=== PATIENT | female | born 1945 | race Caucasian/White ===

== ENCOUNTER 2017-02-27 11:14 | Inpatient (IN) ==
--- NOTE | 2017-02-26 21:03 | Discharge Summary ---
<Gerda Mcbride - Last Filed: 02/26/17 20:58> Date of Encounter: 02/26/17 - Discharge Diagnosis (1) Arthritis of knee, left Priority: Primary Status: Acute (2) COPD (chronic obstructive pulmonary disease) Priority: Secondary Status: Chronic Qualifiers: COPD type: unspecified COPD Qualified Code(s): J44.9 - Chronic obstructive pulmonary disease, unspecified (3) History of lymphoma Priority: Secondary Status: Chronic (4) Type 2 diabetes mellitus Priority: Secondary Status: Chronic Qualifiers: Diabetes mellitus complication status: with unspecified complications Diabetes mellitus penitentiary insulin use: unspecified adjunct faculty for medical terminology insulin use status Qualified Code(s): E11.8 - Type 2 diabetes mellitus with unspecified complications (5) MGUS (monoclonal gammopathy of unknown significance) Priority: Secondary Status: Chronic (6) Chronic renal insufficiency, stage III (moderate) Priority: Secondary Status: Chronic - Discharge Medications Home Medications: Albuterol Neb [Proventil Neb] 2.5 mg IH Q4HR PRN 10/05/16 [History] Albuterol Sulfate [Ventolin Hfa] 2 puff IH Q4H PRN 10/05/16 [History] Amitriptyline HCl 100 mg PO HS 10/05/16 [History] Ascorbate Calcium [Vitamin C] 500 mg PO DAILY 10/05/16 [History] Bumetanide 3 mg PO QAM 10/05/16 [History] Bumetanide [Bumex] 1 mg PO QPM 10/05/16 [History] Cholecalciferol (D-3) [Vitamin D] 5,000 unit PO DAILY 10/05/16 [History] Clopidogrel [Plavix] 75 mg PO DAILY 10/05/16 [History] Darbepoetin Bunny in Polysorbat [Aranesp] 200 mcg IJ Q2W 10/05/16 [History] Fluticasone Propionate Nasal [Flonase] 1 spr NS DAILY PRN 10/05/16 [History] Fluticasone/Salmeterol [Advair 250-50 Diskus] 1 each IH BID 10/05/16 [History] Guaifenesin [Mucinex] 600 mg PO Q12H 10/05/16 [History] Insulin Glargine,Hum.rec.anlog [Lantus Solostar] 25 unit SQ HS 10/05/16 [History ] Insulin LISPRO [HumaLOG] 6 units SQ TIDWM 10/05/16 [History] Isosorbide MONOnitrate (24 HR) [Imdur] 30 mg PO DAILY 10/05/16 [History] LORazepam [Ativan] 0.5 mg PO TID PRN 10/05/16 [History] Losartan Potassium [Cozaar] 100 mg PO DAILY 10/05/16 [History] Metoprolol [Lopressor] 50 mg PO BID 10/05/16 [History] Montelukast [Singulair] 10 mg PO HS 10/05/16 [History] Nitroglycerin [Nitrostat] 0.4 mg SL Q5M PRN 10/05/16 [History] Omeprazole [PriLOSEC] 40 mg PO BID 10/05/16 [History] Quetiapine Fumarate [SEROquel] 100 mg PO HS 10/05/16 [History] Sennosides [Senna] 8.6 mg PO DAILY 10/05/16 [History] Umeclidinium [place] [Incruse Ellipta] 1 puff IH DAILY 10/05/16 [History] Venlafaxine HCl [Effexor Xr] 225 mg PO DAILY 10/05/16 [History] HYDROcodone/Acet 10/325 mg [[place] 10-325 mg] 1 tab PO Q8H PRN 12/22/16 [History] Folic Acid 1 mg PO DAILY #30 tablet 02/13/17 [Rx] Aspirin Enteric Coated [Aspirin EC] 325 mg PO DAILY #21 tablet. 02/26/17 [Rx] Atorvastatin Calcium [Lipitor] 20 mg PO Q48H 02/27/17 [History] Calcitriol 0.5 mcg PO BID 02/27/17 [History] Cyanocobalamin (Vitamin B-12) [Vitamin B-12] 50 mcg PO DAILY 03/01/17 [History] Docusate [Colace] 100 mg PO DAILY 03/01/17 [History] Allergies/Adverse Reactions: Allergies codeine Adverse Reaction (Verified 02/27/17 12:20) Nausea NSAIDS (Non-Steroidal Anti-Inflamma Adverse Reaction (Verified 02/27/17 12:20) Nausea tramadol [From Ultram] Adverse Reaction (Verified 02/27/17 12:20) Nausea Primary care physician: Brock Alfaro MD - Patient Status Disposition: Transfer Inpatient Rehab Fac Condition: Good - Discharge Instructions Follow Up With: Brock Alfaro MD [Primary Care Provider] - 04/17/17 1:15 pm Navin Monteiro MD [Partnered Physician] - 03/28/17 9:45 am Gerda Mcbride PAC [Physician Assistant Office Manager] - 03/08/17 1:30 pm Gerda Maher CNP [Partnered Physician] - 03/23/17 1:00 pm Additional Instructions: Discharge Instructions: Total Knee Replacement Please call [facility] ([phone]), your Primary Care Physician, or report to the Emergency Room if you have any of the following symptoms: Nausea, vomiting, fever greater that 101.5, swelling, chest pain, shortness of breath, increased pain/redness/drainage/odor for your incision site, numbness/ tingling, or any other concerning symptoms. ACTIVITY:Weight-bearing as tolerated. You may progress off support (crutches or walker) as tolerated. MEDICATIONS: Upon discharge resume your home medications. Take all the medications as prescribed. Take a stool softener if taking narcotic pain medications. Stool softeners are only effective if you drink enough fluids. Drink 6-8 glass of water or fluids a day, unless this is not allowed for another health problem. Despite using stool softeners, if you haven't had a bowel movement in 3 days, please switch to a gentle laxative. Gentle laxatives are sold over the counter. You should have a bowel movement within 24 hours, if not call the office. You will be discharged from the hospital with a prescription for pain medication. You are encouraged to decrease the use of narcotic pain medication as tolerated. Should you require a refill, please call the office. [facility] prescribes narcotic pain medication for only 4-6 weeks after surgery. If you require pain medication beyond this time period, you may be referred to your Primary Care Physician or to the Pain Clinic for further evaluation. Plan ahead for refills on pain medication as many narcotics either need to be picked up at the office or mailed. It is best to call 48-72 hours in advance of needing a prescription refill so you don't run out of medication. To help control the post-operative pain, you may take NSAIDs (Aleve,Advil, Motrin, Ibuprofen, Naprosyn) or Tylenol as prescribed on the bottle in addition to the pain medication. ANTICOAGULATION (blood thinners): Continue your Aspirin, Lovenox or Coumadin as prescribed to help prevent a blood clot in the leg or in the lungs. As long as your incision remains dry and you tolerate the NSAIDs (Aleve, Advil, Motrin, ibuprofen, naprosyn), it is OK to use the NSAIDS while you are taking your anticoagulation medication. Should your incision start to drain, stop the NSAID and contact our office. Common symptoms of blood clot in the legs include: localized pain, swelling, calf tenderness, redness or discoloration of the skin. Blood clot in the lung symptoms include: shortness of breath, rapid pulse, sweating, and chest pain that worsens with deep breathing, coughing up blood, lightheadedness, feelings of anxiety. If you experience any of these symptoms notify your physician immediately, go to the emergency room, or if having trouble breathing, call 911. WOUND CARE: Leave the dressing on for 7 to 10days. You may change the dressing if it becomes saturated greater than 50%. Do not get the dressing wet at anytime. Wash your hands with antibacterial soap, rinse and dry prior to any wound care. If you have susan the visiting nurse or rehab facility can remove the stapes 10-14 days after surgery and place steri-strips across the wound. Leave the steri-strips in place until they fall off on their won. You may let water from the shower run on top of the steri-strips. If you do not have a visiting nurse or rehab facility, you will need to return to the office at 10-14 days for the susan to be removed. If you have itching or redness around the dressing call the office. FOLLOW-UP: Please follow up with your surgeon in the orthopedic clinic in 4 weeks from the day of surgery. If you have susan that need to be removed, you will need to come back to the office in 10-14 days from the day of surgery. - Hospital Course Hospital course: Ms. Gillette is a 72 year old female - Time Spent with Patient Total time spent providing and/or coordinating discharge services: <Navin Monteiro - Last Filed: 03/02/17 09:38> Date of Encounter: 03/02/17 Time of Encounter: 09:38 - Discharge Diagnosis (1) Obesity (BMI 30.0-34.9) Priority: Secondary Status: Chronic (2) Arthritis of knee, left Priority: Primary Status: Acute (3) COPD (chronic obstructive pulmonary disease) Priority: Secondary Status: Chronic Qualifiers: COPD type: unspecified COPD Qualified Code(s): J44.9 - Chronic obstructive pulmonary disease, unspecified (4) History of lymphoma Priority: Secondary Status: Chronic (5) Malignant lymphoma, lymphoplasmacytic Priority: Secondary Status: Chronic (6) Type 2 diabetes mellitus Priority: Secondary Status: Chronic Qualifiers: Diabetes mellitus complication status: with unspecified complications Diabetes mellitus penitentiary insulin use: unspecified adjunct faculty for medical terminology insulin use status Qualified Code(s): E11.8 - Type 2 diabetes mellitus with unspecified complications (7) MGUS (monoclonal gammopathy of unknown significance) Priority: Secondary Status: Chronic (8) Chronic renal insufficiency, stage III (moderate) Priority: Secondary Status: Chronic (9) Anemia Priority: Secondary Status: Chronic Qualifiers: Anemia type: other cause Other causes of anemia: chronic disease, kidney Qualified Code(s): N18.9 - Chronic kidney disease, unspecified; D63.1 - Anemia in chronic kidney disease (10) Acute blood loss anemia Priority: Primary Status: Acute Primary care physician: Brock Alfaro MD - Patient Status Functional capacity at discharge: uses cane/walker Overall status at discharge: patient is progressing back to baseline - Hospital Course Hospital course: Ms. Gillette is a 72 year old female The patient had an uneventful postoperative course. They received antibiotics and physical therapy and were discharged in stable condition. There will follow -up in the office in 2 weeks. Plavix DVT prophylaxis - Time Spent with Patient Total time spent providing and/or coordinating discharge services:
--- NOTE | 2017-02-27 11:47 | Anesthesia Evaluation PreOp ---
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 History: Denies Any Significant HX Other Medical History: Renal (stage 3 CKD), Diabetes Type II, GERD, Other (H/O lymphoma immunosupressive therapy, anxiety/depression) Anesthesia History: No Prior Anesthetic Complications, Past Anesthesia Alcohol Use: none Drug use: none Medications and Allergies Albuterol Neb [Proventil Neb] 2.5 mg IH Q4HR PRN 10/05/16 [History] Albuterol Sulfate [Ventolin Hfa] 2 puff IH Q4H PRN 10/05/16 [History] Amitriptyline HCl 100 mg PO HS 10/05/16 [History] Ascorbate Calcium [Vitamin C] 500 mg PO DAILY 10/05/16 [History] Bumetanide 3 mg PO QAM 10/05/16 [History] Bumetanide [Bumex] 1 mg PO QPM 10/05/16 [History] Cholecalciferol (D-3) [Vitamin D] 5,000 unit PO DAILY 10/05/16 [History] Clopidogrel [Plavix] 75 mg PO DAILY 10/05/16 [History] Cyanocobalamin (Vitamin B-12) [Vitamin B-12] 1,000 mcg SL DAILY 10/05/16 [ History] Darbepoetin Bunny in Polysorbat [Aranesp] 200 mcg IJ Q2W 10/05/16 [History] Fluticasone Propionate Nasal [Flonase] 1 spr NS DAILY PRN 10/05/16 [History] Fluticasone/Salmeterol [Advair 250-50 Diskus] 1 each IH BID 10/05/16 [History] Guaifenesin [Mucinex] 600 mg PO Q12H 10/05/16 [History] Insulin Glargine,Hum.rec.anlog [Lantus Solostar] 25 unit SQ HS 10/05/16 [History ] Insulin LISPRO [HumaLOG] 6 units SQ TIDWM 10/05/16 [History] Isosorbide MONOnitrate (24 HR) [Imdur] 30 mg PO DAILY 10/05/16 [History] LORazepam [Ativan] 0.5 mg PO TID PRN 10/05/16 [History] Losartan Potassium [Cozaar] 100 mg PO DAILY 10/05/16 [History] Metoprolol [Lopressor] 50 mg PO BID 10/05/16 [History] Montelukast [Singulair] 10 mg PO HS 10/05/16 [History] Nitroglycerin [Nitrostat] 0.4 mg SL Q5M PRN 10/05/16 [History] Omeprazole [PriLOSEC] 40 mg PO DAILY 10/05/16 [History] Paricalcitol [Zemplar] 1 mcg PO DAILY 10/05/16 [History] Quetiapine Fumarate [SEROquel] 100 mg PO HS 10/05/16 [History] Sennosides [Senna] 8.6 mg PO DAILY 10/05/16 [History] Umeclidinium [place] [Incruse Ellipta] 1 puff IH DAILY 10/05/16 [History] Venlafaxine HCl [Effexor Xr] 225 mg PO DAILY 10/05/16 [History] HYDROcodone/Acet 10/325 mg [[place] 10-325 mg] 1 tab PO Q8H PRN 12/22/16 [History] Simvastatin [Zocor] 20 mg PO HS 12/22/16 [History] Folic Acid 1 mg PO DAILY #30 tablet 02/13/17 [Rx] Aspirin Enteric Coated [Aspirin EC] 325 mg PO DAILY #21 tablet. 02/26/17 [Rx] HYDROcodone/Acet 5/325 mg [[place] 5-325 mg] 1 - 2 tab PO DAILY #14 tab 02/26/17 [ Rx] Allergies codeine Adverse Reaction (Verified 10/05/16 09:26) Nausea NSAIDS (Non-Steroidal Anti-Inflamma Adverse Reaction (Verified 10/05/16 09:26) Nausea tramadol [From Ultram] Adverse Reaction (Verified 10/05/16 09:26) Nausea - Meds/Allergy Pre-op Review Medications Reviewed: Yes Allergies Reviewed: Yes Beta Blockers on Current Med List: Yes If Beta Blockers taken, Date/Time (Last Dose taken): 02/27/2017 at 0800 Anesthesia Results - Labs Laboratory Tests 0402/21/17 02/21/17 16:00 12:05 12:05 WBC 9.5 Hgb 10.2 L Hct 32.2 L Plt Count 419 H PT 11.0 INR 1.0 APTT 29.0 Sodium 134 L Potassium 4.4 BUN 24 H Creatinine 1.20 H - Imaging EKG: report reviewed (02/08/2017 SR, moderate voltage criteria for LVH, NSST abnormality) Additional studies: 02/01/2017 Echo LVEF 60% very small pericardial effusion along the inferior and inferolateral segments of LV no tamponade 01/18/2017 Stress perfusion imaging was negative for ischemia or infarct EF 64% 08/29/2012 Cath Impression: Minimal atherosclerotic coronary artery disease. The left ventricular ejection fraction was 65-70%. The overall left ventricular systolic function was hyperkinetic. Anesthesia Exam Blood glucose: 116 Height: 5'2'' Weight: 189 lbs NPO (# of Hours): 8 Pain Scale: 8 Pain Scale Used: Numeric (1 - 10) - HEENT Pupil (Motor): EOMI Mallampati: III Teeth: Edentulous Denture Type: Upper: Complete, Lower: Complete Oral Opening: Greater than 3 - ATTORNEY [employer]ER LOC: Oriented ATTORNEY [employer]ER Motor: Normal RUE, Normal LUE, Normal RLE, Normal LLE, Normal Face [employer]ORNEY [employer]ER Sensory: Normal: LUE, RLE, LLE, Face, Deficit: RUE - Cardiac Rhythm: Regular Murmur: None - Pulmonary Breath Sounds: bilateral Clear Respiratory Effort: Symmetrical Anesthesia Assess/Plan ASA Score: 4 Modified [place] Scale for Level of Consciousness: Cooperative, oriented, and tranquil Anesthetic Plan: General, Regional, Precautions (Patient and family understand that she is at increased risk for perioperative complications including myocardial infarct, arrhythmias, CVA, post op vent support/ICU stay, and . Patient and family wish to proceed.) Monitoring Plan: Standard Monitors Recovery Plan: PACU
[2017-02-27] MEDS ORDERED: Tetracaine/PF 20 MG/2 ML AMPUL SPINA ONE (12:02)
--- NOTE | 2017-02-27 12:05 | History & Physical Report ---
Date of Encounter: 02/27/17 Time of Encounter: 12:04 24 Hour HP Update - Instructions Instructions: If the History and Physical is less than 30 days old and was completed prior to A.M. admission and or procedure and has NOT been updated on calendar day of procedure please complete this update prior to performing procedure. - Update Patient reports changes in Medical Condition: No Changes in examination, assessment, or condition: No Changes in Medication: No Preop tests/diagnostics Reviewed: Yes Surgery Remains Indicated: Yes Consent for Planned Operative Procedure(s) Verified: Yes - Pre-Operative Checklist Preoperative Checklist Indicated: No Prophylactic Antibiotic Ordered: Yes Is VTE Prophylaxis Indicated?: Yes
[2017-02-27] MEDS ORDERED: CeFAZolin Pre 2,000 MG/100 ML 2,000 MG/100 ML BAG IVPB ONE (12:09)
[2017-02-27] MEDS ORDERED: Albuterol 2.5 MG/3 ML NEBULIZER IH ONE ×2 (12:09→13:02)
[2017-02-27] MEDS ORDERED: Lidocaine -MPF 1% 2 ML VIAL ID ONE (12:09)
[2017-02-27] MEDS ORDERED: 0.9 % Sodium Chloride 1,000 ML IVC SCH (12:15)
[2017-02-27] MEDS ORDERED: *HR* Promethazine 25 MG/ML VIAL IVP PRN (13:02)
[2017-02-27] MEDS ORDERED: *HR* Labetalol 100 MG/20 ML MDV IVP PRN (13:02)
[2017-02-27] MEDS ORDERED: Lidocaine -MPF 2% 2 ML VIAL ONE (13:13)
[2017-02-27] MEDS ORDERED: Dexamethasone 4 MG/ML VIAL ONE (13:13)
[2017-02-27] MEDS ORDERED: Lidocaine -MPF 4% 5 ML AMPUL ONE (13:13)
[2017-02-27] MEDS ORDERED: *HR* Rocuronium Bromide 50 MG/5 ML VIAL ONE (13:13)
[2017-02-27] MEDS ORDERED: Ondansetron 4 MG/2 ML VIAL ONE (13:13)
[2017-02-27] MEDS ORDERED: *HR* FentaNYL (PF) 100 MCG/2 ML VIAL ONE (13:13)
[2017-02-27] MEDS ORDERED: *HR* Succinylcholine 200 MG/10 ML VIAL IVP ONE (13:13)
[2017-02-27] MEDS ORDERED: *HR* Propofol 200 MG/20 ML VIAL IVP ONE (13:14)
[2017-02-27] MEDS ORDERED: *HR* Midazolam HCl 2 MG/2 ML VIAL ONE (13:14)
--- NOTE | 2017-02-27 14:01 | Anesthesia Procedures ---
Date of Encounter: 02/27/17 Time of Encounter: 14:01 Procedures: Anesthesia - Nerve Block Procedure Date: 02/27/17 Time: 13:59 Allergies/Adv Reactions: Allergies codeine Adverse Reaction (Verified 02/27/17 12:20) Nausea NSAIDS (Non-Steroidal Anti-Inflamma Adverse Reaction (Verified 02/27/17 12:20) Nausea tramadol [From Ultram] Adverse Reaction (Verified 02/27/17 12:20) Nausea Pre-op Diagnosis: oa left knee Surgical Procedure: left total knee Checklist: Correct Patient Identifier, Correct procedure, History checked Correct side: Left Blood Thinner: No Monitor Applied: EKG, BP, Pulse Oximetry Supplemental Oxygen via Nasal Cannula (L/min): 2 Sedation: Versed (mg): 2 Sedation: Fentanyl (mcg): 100 Indication: Post Op Analgesia Pre-op Neuro Deficits: No Block Type: Femoral (.5% bup), Other (ipack, 20cc 0.25% bup) Catheter placed: No Sterile Technique: Yes Ultrasound used: Yes Anatomy identified: Yes Visual spread of Local: Yes Neuro Stimulation: Yes Nerve Stimulator Range: 0.2 - 0.4 mA Blood on Needle Aspiration: No Smooth Injection of Local: Yes Pain with Injection of Local: No Prep: Chlorhexadine Needle: 22 x 50 mm Stimuplex, 21 x 100 mm Stimuplex Local: 0.25% Bupivicaine w/Clonidine 20 mcg/cc, Other Volume (cc): 40 Number of Attempts: 1 Complications: None/effective block
--- NOTE | 2017-02-27 14:55 | Orthopedic Operative Note ---
Date of procedure: 02/27/17 Pre-op diagnosis: Left knee arthritis Procedure: Procedure: left Total knee replacement Estimated blood loss: 500 cc Hardware: Arthrex Femur: 5 Tibia: 5 PS insert: 11 Patella:37 Exam Under anesthesia: Full flexion full extension no instability Procedural Notes: Grade 4 changes medial compartment patellofemoral joint. Operative procedure: The patient was brought to the operating room and placed on the operating room table. After general anesthesia was administered the operative knee was examined. Findings were noted in the exam under anesthesia. The operative extremity was prepped and draped in sterile surgical fashion. The patient received IV antibiotics prior to skin incision. A standard midline incision was made centered over the patella. The incision was made through the skin and subcutaneous tissue. A medial parapatellar tendon approach was performed. Care was taken to preserve tissue along the medial aspect of the patella. And to protect the patella tendon. The deep MCL was released off the medial tibia. The infra patella fat pad was excised. Knee was brought into flexion. Patient noted to have grade 4 changes medial compartment and patellofemoral joint. The entry hole was made for the intramedullary femoral guide. The guide was seated in 6 degrees of valgus. Anterior cut was made followed by the distal cut. The ACL the PCL the medial and the lateral menisci were excised. The tibia was subluxed forward. The entry hole was made for the intramedullary tibial guide. Guide was seated to resect 2 mm off the more abnormal side. The knee was brought into flexion the distal femur was sized to a 5. The femoral guide was seated, the anterior cut was made followed by the posterior condylar cut, followed by the chamfer cuts. The finishing guide was seated the box cut was made and the lug holes were drilled. The tibia was sized to a 5, the tibial tray was seated and prepared with the large drill followed by the fin cutter. Trial reduction revealed full extension no varus valgus instability with the appropriate 11 PS Dorothy. The patella was everted and cut was made at the level of the insertion of the quadriceps and patella tendon. The patella was sized to a 37 the guide was seated and the lug holes are drilled. Trial reduction revealed excellent patella tracking. All trial components were removed all bony surfaces were irrigated. The tibia was cemented first followed by the femur. The 11 PS Dorothy was seated and the knee was brought into full extension. The patella was cemented and held in place with the patellar holding clamp. After the cement had hardened, the knee sat for 2 minutes with a Betadine saline solution. The knee was then irrigated out with 2 L of pulse irrigation. The extensor mechanism was closed with #2 FiberWire suture and #2 PDS suture. The subcutaneous tissue was then irrigated and closed deep with #1 PDS suture superficially with 0 PDS suture and skin was closed with skin susan. The patient was then placed in a sterile dressing and a postoperative brace extubated and transferred to recovery room in stable condition. Surgeon: Navin Monteiro Director Medical Safety: Gerda Mcbride Condition: stable Disposition: PACU
[2017-02-27] MEDS: *HR* HYDROmorphone (PF) 1 MG/ML SYRINGE IVP PRN ×5 (15:30→20:04)
[2017-02-27] MEDS ORDERED: *HR* HYDROmorphone (PF) 1 MG/ML SYRINGE ONE ×2 (15:30→15:41)
[2017-02-27 15:58] LABS: Hematocrit 30.8 % (35.3-44.9); Hemoglobin 9.3 g/dL (11.5-15.4)
--- NOTE | 2017-02-27 16:09 | Anesthesia Procedures ---
Date of Encounter: 02/27/17 Time of Encounter: 16:00 Procedures: Anesthesia - Nerve Block Procedure Date: 02/27/17 Time: 16:00 Allergies/Adv Reactions: codeine, nsaids, tramadol Pre-op Diagnosis: Left knee pain/arthritis Surgical Procedure: Left total knee arthroplasty Checklist: Correct Patient Identifier, Correct procedure, History checked Correct side: Left Blood Thinner: No Monitor Applied: EKG, BP, Pulse Oximetry Supplemental Oxygen via Nasal Cannula (L/min): 2 Indication: Post Op Analgesia Pre-op Neuro Deficits: No Block Type: Femoral Catheter placed: No Sterile Technique: Yes Ultrasound used: Yes Anatomy identified: Yes Visual spread of Local: Yes Neuro Stimulation: No Smooth Injection of Local: Yes Pain with Injection of Local: No Prep: Chlorhexadine Needle: 22 x 50 mm Stimuplex Local: 0.25% Bupivicaine w/Clonidine 20 mcg/cc Volume (cc): 40 Number of Attempts: 1 Complications: None/effective block Vitals: Vital Signs Temperature 98.7 F 02/27/17 12:39 Pulse Rate 89 02/27/17 12:39 Respiratory Rate 18 02/27/17 12:39 Blood Pressure 141/69 02/27/17 12:39 O2 Sat by Pulse Oximetry 97 02/27/17 12:39 Temperature 97.8 F 02/27/17 16:06 Pulse Rate 91 02/27/17 16:06 Respiratory Rate 22 02/27/17 16:06 Blood Pressure 149/69 02/27/17 16:06 O2 Sat by Pulse Oximetry 100 02/27/17 16:06 Comments: Rescue block performed in the PACU. Pain intolerable post surgery and previously failed block. Pt. tolerated well.
[2017-02-27] MEDS ORDERED: Ketamine *HR* 500 MG/10 ML MDV ONE (16:10)
[2017-02-27] MEDS ORDERED: Acetaminophen IV 1,000 MG/100 ML INFUS..BTL ONE (16:16)
[2017-02-27] MEDS ORDERED: Acetaminophen IV 1,000 MG/100 ML INFUS..BTL IVPB ONE (16:19)
--- NOTE | 2017-02-27 16:32 | Anesthesia Evaluation Post Op ---
Date of Encounter: 02/27/17 Time of Encounter: 16:32 - Vital Signs Vital Signs: Last Vital Signs Temp 98.0 F 02/27/17 16:26 Pulse 90 02/27/17 16:26 Resp 20 02/27/17 16:26 BP 164/74 02/27/17 16:26 Pulse Ox 100 02/27/17 16:26 - Lungs Lungs: Clear Ascult./Percussion - Airway Airway: Non-obstructed - Cardiovascular Regular Rate - Mental Status Mental Status: Alert & Oriented, Answers Appropriately - Pain Pain Scale: 4 - Nausea Vomiting Nausea Vomiting: Not Present - Hydration Hydration: Ice chips - Discharge PostOp Status: Transfer Patient to floor
[2017-02-27] MEDS ORDERED: Ringers Solution, Lactated 1,000 ML IVC SCH (17:00)
[2017-02-27] MEDS ORDERED: Temazepam 15 MG CAPSULE PO PRN (17:00)
[2017-02-27] MEDS ORDERED: *HR* OxyCODONE Immed Rel 5 MG TABLET PO PRN (17:00)
[2017-02-27] MEDS ORDERED: Acetaminophen 325 MG TABLET PO PRN (17:00)
[2017-02-27] MEDS ORDERED: Dextrose Gel 15 GM PO PRN ×2 (17:00)
[2017-02-27] MEDS ORDERED: D5% in Water 1,000 ML IVC PRN (17:00)
[2017-02-27] MEDS ORDERED: Naloxone 0.4 MG/ML INJ IVP PRN (17:00)
[2017-02-27] MEDS ORDERED: Ondansetron 4 MG/2 ML VIAL IVP PRN (17:00)
[2017-02-27] MEDS ORDERED: Sennosides 8.6 MG TABLET PO PRN (17:00)
[2017-02-27] MEDS ORDERED: MOM Conc 10 ML UD.LIQ PO PRN (17:00)
[2017-02-27] MEDS ORDERED: *HR* Dextrose 50 % in Water (Syg) 50 ML SYRINGE IVP PRN (17:00)
[2017-02-27] MEDS: ceFAZolin 2,000 MG in D5% in Water 100 ML IVPB SCH (17:39)
[2017-02-27] MEDS: Insulin LISPRO 300 UNITS/3 ML VIAL SQ SCH (17:40)
[2017-02-27] MEDS: *HR* Enoxaparin 30 MG/0.3 ML SYRINGE SQ SCH (17:42)
[2017-02-27] MEDS ORDERED: *HR* Enoxaparin 30 MG/0.3 ML SYRINGE SQ SCH (18:00)
[2017-02-27] MEDS: *HR* OxyCODONE Immed Rel 5 MG TABLET PO PRN (21:23)
[2017-02-27] MEDS ORDERED: Fluticasone Propionate Nasal 50 MCG/SPRAY BOTTLE NS PRN (22:19)
[2017-02-27] MEDS ORDERED: Nitroglycerin 0.4 MG TAB.SUBL SL PRN (22:19)
[2017-02-27] MEDS ORDERED: *HR* LORazepam 0.5 MG TABLET PO PRN (22:42)
[2017-02-27] MEDS: Albuterol 2.5 MG/3 ML NEBULIZER IH SCH (23:38)
[2017-02-28] MEDS: ceFAZolin 2,000 MG in D5% in Water 100 ML IVPB SCH (00:26)
[2017-02-28] MEDS: Albuterol 2.5 MG/3 ML NEBULIZER IH SCH ×6 (04:50→23:12)
[2017-02-28 05:08] LABS: Hematocrit 24.6 % (35.3-44.9)
[2017-02-28 05:29] LABS: Hemoglobin 7.7 g/dL (11.5-15.4)
[2017-02-28 05:35] LABS: Calcium 9.3 mg/dL (8.6-10.8); Potassium 4.6 mEq/L (3.5-4.5)
[2017-02-28] MEDS: *HR* Enoxaparin 30 MG/0.3 ML SYRINGE SQ SCH (05:37)
[2017-02-28] MEDS ORDERED: Furosemide 20 MG/2 ML VIAL IVP ONE (06:28)
[2017-02-28] MEDS ORDERED: 0.9 % Sodium Chloride 250 ML IVC SCH (06:30)
[2017-02-28] MEDS ORDERED: D5% in Water 1,000 ML IVC PRN (06:34)
--- NOTE | 2017-02-28 06:43 | Orthopedics Progress Note ---
Date of Encounter: 02/28/17 Time of Encounter: 06:42 - Assessment and Plan (1) Obesity (BMI 30.0-34.9) Current Visit: Yes Status: Chronic (2) Arthritis of knee, left Current Visit: Yes Status: Acute (3) COPD (chronic obstructive pulmonary disease) Current Visit: Yes Status: Chronic Qualifiers: COPD type: unspecified COPD Qualified Code(s): J44.9 - Chronic obstructive pulmonary disease, unspecified (4) History of lymphoma Current Visit: Yes Status: Chronic (5) Malignant lymphoma, lymphoplasmacytic Current Visit: No Status: Chronic (6) Type 2 diabetes mellitus Current Visit: No Status: Chronic Qualifiers: Diabetes mellitus complication status: with unspecified complications Diabetes mellitus intermediate project manager insulin use: unspecified intermediate project manager insulin use status Qualified Code(s): E11.8 - Type 2 diabetes mellitus with unspecified complications (7) MGUS (monoclonal gammopathy of unknown significance) Current Visit: No Status: Chronic (8) Chronic renal insufficiency, stage III (moderate) Current Visit: No Status: Chronic (9) Anemia Current Visit: No Status: Chronic Qualifiers: Anemia type: other cause Other causes of anemia: chronic disease, kidney Qualified Code(s): N18.9 - Chronic kidney disease, unspecified; D63.1 - Anemia in chronic kidney disease (10) Acute blood loss anemia Current Visit: Yes Status: Acute Subjective Interval history: Patient was seen this morning doing well without complaints. Afebrile vital signs stable. Operative extremity: Neurovascularly intact Dressing clean dry and intact Calves nontender Assessment and plan: Continue with postoperative care Hematocrit 24 2 units packed red blood cells Objective Vital signs: Vital Signs Temp Pulse Resp BP Pulse Ox 02/28/17 06:32 97.8 F 89 16 132/65 98 02/28/17 04:50 18 98 02/28/17 03:50 97.8 F 99 18 120/55 98 02/28/17 00:00 97.3 F L 95 19 126/58 99 02/27/17 23:38 18 97 02/27/17 19:55 98.2 F 97 18 139/67 99 02/27/17 16:55 97.4 F L 90 18 149/62 99 02/27/17 16:26 98.0 F 90 20 164/74 100 02/27/17 16:16 99.4 F 92 22 172/83 100 02/27/17 16:06 97.8 F 91 22 149/69 100 02/27/17 15:56 92 22 150/70 100 02/27/17 15:46 92 26 141/61 100 02/27/17 15:36 88 26 139/76 100 02/27/17 15:26 95 28 138/63 100 02/27/17 15:16 97.3 F L 103 28 137/63 96 02/27/17 13:56 96 16 150/66 98 02/27/17 13:46 96 16 142/63 99 02/27/17 13:26 98 16 157/58 99 02/27/17 12:39 98.7 F 89 18 141/69 97 Intake and Output 02/27/17 02/27/17 02/28/17 15:59 23:59 07:59 Intake Total 500 / 500 100 / 100 100 / 100 Output Total 100 / 100 1150 / 1150 Balance 400 / 400 -1050 / -1050 100 / 100 Intake: IV Fluids 500 / 500 100 / 100 100 / 100 0.9 % Sodium Chloride 1, 500 / 500 000 ML @ 25 mls/hr IVC . Q24H JOSSY Rx#:[id number] Ancef 2,000 MG In 100 / 100 100 / 100 Dextrose 5% 100 ML @ 200 mls/hr IVPB Q8H JOSSY Rx#: [id number] Output: Urine 1150 / 1150 Estimated Blood Loss 100 / 100 Other: Weight 85.729 kg Blood Glucose* 184 206 - Labs CBC & BMP: 02/28/17 03:55 02/28/17 03:55 Labs: Abnormal lab results Hgb 7.7 g/dL (11.5-15.4) L D 02/28/17 03:55 Hct 24.6 % (35.3-44.9) L 02/28/17 03:55 Sodium 135 mEq/L (136-145) L 02/28/17 03:55 Potassium 4.6 mEq/L (3.5-4.5) H 02/28/17 03:55 BUN 25 mg/dL (7-20) H 02/28/17 03:55 Creatinine 1.18 mg/dL (0.57-1.11) H 02/28/17 03:55 Est GFR ( Amer) 54 (> 60) L 02/28/17 03:55 Est GFR (Non-Af Amer) 45 (> 60) L 02/28/17 03:55 Glucose 166 mg/dL (70-99) H 02/28/17 03:55 POC Glucose 184 (58-89) H 02/27/17 15:21 - VTE Documentation of Mechanical Device: Venous foot pump, device Consult Discharge Plan - Plan Referrals: Brock Alfaro MD [Primary Care Provider] -
[2017-02-28] MEDS: Bumetanide 1 MG TABLET PO SCH (08:49)
[2017-02-28] MEDS: *HR* OxyCODONE Immed Rel 5 MG TABLET PO PRN ×3 (08:49→22:08)
[2017-02-28] MEDS: Insulin LISPRO 300 UNITS/3 ML VIAL SQ SCH ×3 (08:49→16:40)
[2017-02-28] MEDS: Venlafaxine XR (24 HR) 75 MG CAP.ER.24H PO SCH (08:50)
[2017-02-28] MEDS: Isosorbide MONOnitrate (24 HR) 30 MG TAB.ER.24H PO SCH (08:50)
[2017-02-28] MEDS: Cholecalciferol (D-3) 1,000 UNIT TABLET PO SCH (08:51)
[2017-02-28] MEDS: Cyanocobalamin (B-12) 1,000 MCG TABLET PO SCH (08:51)
[2017-02-28] MEDS: Folic Acid 1 MG TABLET PO SCH (08:51)
[2017-02-28] MEDS: Sennosides 8.6 MG TABLET PO SCH (08:51)
[2017-02-28] MEDS: Ascorbic Acid 500 MG TABLET PO SCH (08:51)
[2017-02-28] MEDS ORDERED: (Incruse Ellipta] 1 PUFF) IH SCH (09:00)
[2017-02-28] MEDS: Budesonide/Formoterol 80/4.5 MDI IH SCH ×2 (09:17→20:01)
[2017-02-28] MEDS ORDERED: 0.9 % Sodium Chloride 250 ML ONE (12:06)
[2017-02-28] MEDS: *HR* HYDROmorphone (PF) 1 MG/ML SYRINGE IVP PRN ×2 (12:10→16:41)
[2017-02-28] MEDS ORDERED: Bumetanide 1 MG TABLET PO SCH (18:00)
[2017-02-28] MEDS ORDERED: Insulin LISPRO 300 UNITS/3 ML VIAL SQ SCH (21:00)
[2017-03-01] MEDS: *HR* OxyCODONE Immed Rel 5 MG TABLET PO PRN ×3 (05:00→13:07)
[2017-03-01] MEDS: Albuterol 2.5 MG/3 ML NEBULIZER IH SCH ×3 (05:21→11:42)
[2017-03-01 06:25] LABS: Hematocrit 26.1 % (35.3-44.9); Hemoglobin 8.4 g/dL (11.5-15.4)
[2017-03-01 06:38] LABS: BUN/Creatinine Ratio 29 (6-26); Blood Urea Nitrogen 31 mg/dL (7-20); Calcium 9.6 mg/dL (8.6-10.8); Carbon Dioxide 28 mEq/L (19-29); Chloride 102 mEq/L (98-109); Glucose 112 mg/dL (70-99); Osmolality,Calculated 289 (280-300); Sodium 136 mEq/L (136-145); eGFR For African Americans > 60 (> 60); eGFR For Non-African Americans 50 (> 60)
[2017-03-01] MEDS: Insulin LISPRO 300 UNITS/3 ML VIAL SQ SCH ×2 (07:39→11:53)
[2017-03-01] MEDS: Isosorbide MONOnitrate (24 HR) 30 MG TAB.ER.24H PO SCH (07:49)
[2017-03-01] MEDS: Bumetanide 1 MG TABLET PO SCH (07:49)
[2017-03-01] MEDS: *HR* HYDROmorphone (PF) 1 MG/ML SYRINGE IVP PRN ×2 (07:49→10:23)
[2017-03-01] MEDS: Cyanocobalamin (B-12) 1,000 MCG TABLET PO SCH (07:49)
[2017-03-01] MEDS: Sennosides 8.6 MG TABLET PO SCH (07:50)
[2017-03-01] MEDS: Cholecalciferol (D-3) 1,000 UNIT TABLET PO SCH (07:50)
[2017-03-01] MEDS: Folic Acid 1 MG TABLET PO SCH (07:50)
[2017-03-01] MEDS: Ascorbic Acid 500 MG TABLET PO SCH (07:50)
[2017-03-01] MEDS: Venlafaxine XR (24 HR) 75 MG CAP.ER.24H PO SCH (07:50)
--- NOTE | 2017-03-01 08:13 | Orthopedics Progress Note ---
Date of Encounter: 03/01/17 Time of Encounter: 08:13 - Assessment and Plan (1) Obesity (BMI 30.0-34.9) Current Visit: Yes Status: Chronic (2) Arthritis of knee, left Current Visit: Yes Status: Acute (3) COPD (chronic obstructive pulmonary disease) Current Visit: Yes Status: Chronic Qualifiers: COPD type: unspecified COPD Qualified Code(s): J44.9 - Chronic obstructive pulmonary disease, unspecified (4) History of lymphoma Current Visit: Yes Status: Chronic (5) Malignant lymphoma, lymphoplasmacytic Current Visit: No Status: Chronic (6) Type 2 diabetes mellitus Current Visit: No Status: Chronic Qualifiers: Diabetes mellitus complication status: with unspecified complications Diabetes mellitus buttermaker insulin use: unspecified buttermaker insulin use status Qualified Code(s): E11.8 - Type 2 diabetes mellitus with unspecified complications (7) MGUS (monoclonal gammopathy of unknown significance) Current Visit: No Status: Chronic (8) Chronic renal insufficiency, stage III (moderate) Current Visit: No Status: Chronic (9) Anemia Current Visit: No Status: Chronic Qualifiers: Anemia type: other cause Other causes of anemia: chronic disease, kidney Qualified Code(s): N18.9 - Chronic kidney disease, unspecified; D63.1 - Anemia in chronic kidney disease (10) Acute blood loss anemia Current Visit: Yes Status: Acute Subjective Interval history: Patient was seen this morning doing well without complaints. Afebrile vital signs stable. Operative extremity: Neurovascularly intact Dressing clean dry and intact Calves nontender Assessment and plan: Continue with postoperative care Hemoglobin 8.4 Objective Vital signs: Vital Signs Temp Pulse Resp BP Pulse Ox 03/01/17 07:40 99.1 F 102 16 155/67 93 03/01/17 04:50 99.4 F 97 16 132/69 98 03/01/17 01:12 98.9 F 94 16 121/58 96 02/28/17 23:12 18 96 02/28/17 20:01 16 97 02/28/17 19:54 99.5 F 106 16 131/64 97 02/28/17 16:20 99.1 F 98 16 143/60 99 02/28/17 15:36 98.4 F 100 18 136/68 97 02/28/17 13:50 98.6 F 94 18 132/67 100 02/28/17 12:49 98.4 F 92 20 131/63 100 02/28/17 12:38 97.1 F L 95 16 145/68 93 02/28/17 12:17 98.5 F 95 16 152/67 93 02/28/17 11:33 16 100 02/28/17 10:03 98.0 F 92 16 134/63 100 02/28/17 09:28 97.5 F L 93 18 139/68 99 02/28/17 09:17 16 100 02/28/17 09:13 97.1 F L 102 20 142/60 100 Intake and Output 02/28/17 03/01/17 03/01/17 23:59 07:59 15:59 Output Total 300 / 300 Balance -300 / -300 Output: Urine 300 / 300 Other: Blood Glucose* 137 134 - Labs CBC & BMP: 03/01/17 05:24 03/01/17 05:24 Labs: Abnormal lab results Hgb 8.4 g/dL (11.5-15.4) L 03/01/17 05:24 Hct 26.1 % (35.3-44.9) L 03/01/17 05:24 BUN 31 mg/dL (7-20) H 03/01/17 05:24 Est GFR (Non-Af Amer) 50 (> 60) L 03/01/17 05:24 BUN/Creatinine Ratio 29 (6-26) H 03/01/17 05:24 Glucose 112 mg/dL (70-99) H 03/01/17 05:24 POC Glucose 110 (58-89) H 02/28/17 16:23 - VTE Documentation of Mechanical Device: Venous foot pump, device Consult Discharge Plan - Plan Referrals: Brock Alfaro MD [Primary Care Provider] - 04/17/17 1:15 pm Navin Monteiro MD [Partnered Physician] - 03/28/17 9:45 am Gerda Mcbride, PAC [Physician Custodial Operations Manager] - 03/08/17 1:30 pm Gerda Maher, TRANSACTIONAL PARALEGAL [Partnered Physician] - 03/23/17 1:00 pm
[2017-03-01] MEDS ORDERED: INCRUSE ELLIPTA 62.5 MCG IH SCH (09:00)
[2017-03-01 11:01] VITALS: BP 152/68
== END 2017-03-01 13:30 | DRG 470 ==
LOC: SAMDAY 11:14 → 3NENU 17:02
PROVIDERS: ADMIT Orthopaedic Surgery; ATTEND Orthopaedic Surgery

== ENCOUNTER 2020-11-19 13:00 | Observation (INO) ==
[2020-11-19] MEDS ORDERED: CeFAZolin Syr 2,000MG/20 ML 2,000 MG/20 ML SYRINGE IVPB ONE (13:19)
[2020-11-19] MEDS ORDERED: Acetaminophen IV 1,000 MG/100 ML BAG IVPB ONE (13:20)
[2020-11-19] MEDS ORDERED: Famotidine 20 MG/2 ML VIAL IVP ONE (13:20)
[2020-11-19] MEDS ORDERED: Ringers Solution, Lactated 1,000 ML IVC SCH ×2 (13:30→17:08)
[2020-11-19] MEDS ORDERED: Ropivacaine/PF 0.5% 30 ML VIAL ONE (13:41)
[2020-11-19] MEDS ORDERED: ROPIVACAINE/PF/NS 0.25% 1 EACH SYRINGE INTRAART ONE (13:41)
[2020-11-19] MEDS ORDERED: 0.9 % Sodium Chloride 500 ML IVC SCH (13:45)
[2020-11-19] MEDS ORDERED: *HR* Propofol 200 MG/20 ML VIAL IVP ONE (13:48)
[2020-11-19] MEDS ORDERED: *HR* FentaNYL (PF) 100 MCG/2 ML VIAL ONE (13:59)
[2020-11-19] MEDS ORDERED: Lidocaine -MPF 2% 2 ML VIAL ONE (14:02)
[2020-11-19] MEDS ORDERED: *HR* Rocuronium Bromide 50 MG/5 ML VIAL ONE (14:02)
[2020-11-19] MEDS ORDERED: Dexamethasone 4 MG/ML VIAL ONE (14:02)
[2020-11-19] MEDS ORDERED: Ondansetron 4 MG/2 ML VIAL ONE (14:02)
[2020-11-19] MEDS ORDERED: EPHEDrine 50 MG/ML VIAL ONE (14:06)
[2020-11-19] MEDS ORDERED: Ethanol\\Acetic Acid\\Na Ace\\Ben 1,000 ML IRRIG.SOLN IR ONE (14:38)
[2020-11-19] MEDS ORDERED: Vancomycin 1,000 MG VIAL ONE (14:38)
[2020-11-19] MEDS ORDERED: *HR* OxyCODONE Immed Rel 5 MG TABLET PO PRN (14:41)
[2020-11-19] MEDS ORDERED: Morphine Sulfate 2 MG/ML SYRINGE IVP PRN (14:41)
[2020-11-19] MEDS ORDERED: Ondansetron 4 MG/2 ML VIAL IVP PRN ×2 (14:41→17:08)
[2020-11-19] MEDS ORDERED: Povidone-Iodine 45 ML, Sodium Chloride IRRigation 1,000 ML IR ONE (15:05)
[2020-11-19] MEDS ORDERED: Sugammadex Sodium 200 MG/2 ML VIAL IV ONE (15:54)
[2020-11-19 17:08] LABS: Hematocrit 27.6 % (35.3-44.9); Hemoglobin 8.3 g/dL (11.5-15.4)
[2020-11-19] MEDS ORDERED: MOM Conc 10 ML UD.LIQ PO PRN (17:08)
[2020-11-19] MEDS ORDERED: Naloxone 0.4 MG/ML INJ IVP PRN (17:08)
[2020-11-19] MEDS ORDERED: D5% in Water 1,000 ML IVC PRN (17:08)
[2020-11-19] MEDS ORDERED: Sennosides 8.6 MG TABLET PO PRN (17:08)
[2020-11-19] MEDS ORDERED: *HR* OxyCODONE/APAP 5/325 TABLET PO PRN (17:08)
[2020-11-19] MEDS ORDERED: *HR* Dextrose 50 % in Water (Vial) 50 ML VIAL IVP PRN (17:08)
[2020-11-19] MEDS ORDERED: Dextrose Gel 15 GM/37.5 ML TUBE PO PRN ×2 (17:08)
[2020-11-19] MEDS: Insulin LISPRO 300 UNITS/3 ML VIAL SUBQ SCH ×2 (17:44→23:18)
[2020-11-19] MEDS: CeFAZolin 2 GM/120 ML BAG IVPB SCH (23:19)
[2020-11-20 01:15] LABS: Hematocrit 24.2 % (35.3-44.9); Hemoglobin 7.3 g/dL (11.5-15.4)
[2020-11-20 02:20] LABS: Calcium 9.5 mg/dL (8.6-10.3); Potassium 5.4 mEq/L (3.5-5.1)
[2020-11-20] MEDS: *HR* OxyCODONE Immed Rel 5 MG TABLET PO PRN ×3 (05:16→12:25)
[2020-11-20] MEDS: CeFAZolin 2 GM/120 ML BAG IVPB SCH (05:30)
[2020-11-20] MEDS ORDERED: Fluticasone Propionate Nasal 50 MCG/SPRAY BOTTLE NS PRN (08:08)
[2020-11-20] MEDS: Insulin LISPRO 300 UNITS/3 ML VIAL SUBQ SCH ×4 (08:15→20:40)
[2020-11-20] MEDS: Cholecalciferol (D-3) 1,000 UNIT (25MCG) TABLET PO SCH (09:43)
[2020-11-20] MEDS: Magnesium Oxide 400 MG TABLET PO SCH (09:43)
[2020-11-20] MEDS: Ascorbic Acid 500 MG TABLET PO SCH (09:44)
[2020-11-20] MEDS: Cyanocobalamin (B-12) 1,000 MCG TABLET PO SCH (09:45)
[2020-11-20] MEDS: Isosorbide MONOnitrate (24 HR) 30 MG TAB.ER.24H PO SCH (09:45)
[2020-11-20] MEDS: Folic Acid 1 MG TABLET PO SCH (09:45)
[2020-11-20] MEDS: calcitrioL 0.25 MCG CAPSULE PO SCH (09:45)
[2020-11-20] MEDS: Clotrimazole/Betameth Dip CRM 45 APPL/45 GM TUBE TP SCH ×2 (09:46→20:40)
[2020-11-20] MEDS: amLODIPine 5 MG TABLET PO SCH (09:46)
[2020-11-20] MEDS: Bumetanide 1 MG TABLET PO SCH ×2 (09:49→16:28)
[2020-11-20] MEDS: Albuterol 2.5 MG/3 ML NEBULIZER IH SCH ×2 (10:03→16:05)
[2020-11-20] MEDS: *HR* Enoxaparin 30 MG/0.3 ML SYRINGE SQ SCH (12:21)
[2020-11-20] MEDS ORDERED: 0.9 % Sodium Chloride 250 ML ONE (13:32)
[2020-11-20] MEDS: *HR* HYDROcodone/Acet 10/325 mg TABLET PO PRN ×2 (16:28→20:40)
[2020-11-20] MEDS ORDERED: QUEtiapine Fumarate 25 MG TABLET PO SCH (21:00)
[2020-11-20] MEDS ORDERED: Mirtazapine 15 MG TABLET PO SCH (21:00)
[2020-11-21] MEDS: *HR* HYDROcodone/Acet 10/325 mg TABLET PO PRN ×3 (03:20→14:38)
[2020-11-21 03:58] LABS: Hematocrit 28.5 % (35.3-44.9)
[2020-11-21 03:59] LABS: Hemoglobin 9.1 g/dL (11.5-15.4)
[2020-11-21] MEDS: Albuterol 2.5 MG/3 ML NEBULIZER IH SCH ×2 (04:15→08:11)
[2020-11-21 04:19] LABS: Calcium 10.2 mg/dL (8.6-10.3)
[2020-11-21 07:10] VITALS: BP 159/71
[2020-11-21] MEDS: Insulin LISPRO 300 UNITS/3 ML VIAL SUBQ SCH ×2 (10:16→12:56)
[2020-11-21] MEDS: amLODIPine 5 MG TABLET PO SCH (10:19)
[2020-11-21] MEDS: Ascorbic Acid 500 MG TABLET PO SCH (10:19)
[2020-11-21] MEDS: Bumetanide 1 MG TABLET PO SCH (10:19)
[2020-11-21] MEDS: calcitrioL 0.25 MCG CAPSULE PO SCH (10:20)
[2020-11-21] MEDS: Cyanocobalamin (B-12) 1,000 MCG TABLET PO SCH (10:20)
[2020-11-21] MEDS: Isosorbide MONOnitrate (24 HR) 30 MG TAB.ER.24H PO SCH (10:20)
[2020-11-21] MEDS: Cholecalciferol (D-3) 1,000 UNIT (25MCG) TABLET PO SCH (10:20)
[2020-11-21] MEDS: Magnesium Oxide 400 MG TABLET PO SCH (10:20)
[2020-11-21] MEDS: Folic Acid 1 MG TABLET PO SCH (10:21)
[2020-11-21] MEDS: Clotrimazole/Betameth Dip CRM 45 APPL/45 GM TUBE TP SCH (10:38)
[2020-11-21] MEDS: *HR* Enoxaparin 30 MG/0.3 ML SYRINGE SQ SCH (12:12)
== END 2020-11-21 14:47 ==
LOC: 3NENU 13:00 → SAMDAY 13:00 → 3NENU 18:05
PROVIDERS: ADMIT Orthopaedic Surgery; ATTEND Orthopaedic Surgery

== ENCOUNTER 2020-12-11 16:39 | Inpatient (IN) ==
[2020-12-11] MEDS ORDERED: Isovue-370 500 ML BOTTLE IVP ONE (17:41)
[2020-12-11 17:43] LABS: Basophils % 0.3 %; Eosinophils # 0.3 K/mcL (0.0-0.6); Hematocrit 29.6 % (35.3-44.9); Hemoglobin 8.9 g/dL (11.5-15.4); Immature Granulocytes % 0.8 % (0-4); Lymphocytes # 1.8 K/mcL (0.6-4.6); Lymphocytes % 15.8 %; Mean Corpuscular HGB Conc 30.1 g/dL (31.6-35.5); Mean Corpuscular Hemoglobin 30.6 pg (28.0-33.3); Mean Corpuscular Volume 101.7 fL (83.0-100.0); Mean Platelet Volume 8.4 fL (9.4-12.4); Monocytes # 1.4 K/mcL (0.0-1.3); Monocytes % 12.3 %; Neutrophils # 7.8 K/mcL (1.6-8.9); Platelet Count 445 K/mcL (140-400); Red Blood Count 2.91 M/mcL (3.82-4.97); Red Cell Distribution Width 14.1 % (11.5-14.5); Segmented Neutrophils % 67.8 %; White Blood Count 11.5 K/mcL (4.3-11.1)
[2020-12-11] MEDS ORDERED: *HR* FentaNYL (PF) 100 MCG/2 ML VIAL IVP ONE (18:00)
[2020-12-11] MEDS ORDERED: Metoclopramide 10 MG/2 ML VIAL IVP ONE (18:00)
[2020-12-11] MEDS ORDERED: 0.9 % Sodium Chloride 1,000 ML IVC ONE (18:00)
[2020-12-11 18:43] LABS: Calcium 9.4 mg/dL (8.6-10.3); Potassium 4.8 mEq/L (3.5-5.1)
[2020-12-11 19:11] LABS: Albumin 3.4 g/dL (3.5-5.7); Albumin/Globulin Ratio 1.1 (1.1-2.2); Bilirubin,Direct 0.1 mg/dL (0.0-0.2); Bilirubin,Indirect 0.3 mg/dL (0.0-1.0); Bilirubin,Total 0.4 mg/dL (0.3-1.0); Globulin 3.2 g/dL (2.4-3.5); Total Protein 6.6 g/dL (6.4-8.9)
[2020-12-11 19:12] LABS: Calcium 9.5 mg/dL (8.6-10.3); Potassium 4.9 mEq/L (3.5-5.1)
[2020-12-11] MEDS ORDERED: Chloraseptic Spray 177 ML BOTTLE MM PRN (23:01)
[2020-12-11] MEDS ORDERED: Naloxone 0.4 MG/ML INJ IVP PRN (23:08)
[2020-12-11] MEDS ORDERED: Acetaminophen IV 1,000 MG/100 ML BAG IVPB ONE (23:11)
[2020-12-11] MEDS ORDERED: Dextrose Gel 15 GM/37.5 ML TUBE PO PRN ×2 (23:22)
[2020-12-11] MEDS ORDERED: *HR* Dextrose 50 % in Water (Vial) 50 ML VIAL IVP PRN (23:22)
[2020-12-11] MEDS ORDERED: D5% in Water 1,000 ML IVC PRN (23:22)
[2020-12-11] MEDS ORDERED: *HR* Metoprolol 5 MG/5 ML VIAL IVP ONE (23:40)
[2020-12-12] MEDS ORDERED: Metoclopramide 10 MG/2 ML VIAL IVP PRN
[2020-12-12 02:12] LABS: Hematocrit 29.4 % (35.3-44.9); Hemoglobin 8.9 g/dL (11.5-15.4); Mean Corpuscular HGB Conc 30.3 g/dL (31.6-35.5); Mean Corpuscular Hemoglobin 30.8 pg (28.0-33.3); Mean Corpuscular Volume 101.7 fL (83.0-100.0); Mean Platelet Volume 9.4 fL (9.4-12.4); Platelet Count 370 K/mcL (140-400); Red Blood Count 2.89 M/mcL (3.82-4.97)
[2020-12-12 02:33] LABS: Calcium 9.5 mg/dL (8.6-10.3); Chol/HDL Ratio 3.4 (0-4.9); Magnesium 2.2 mg/dL (1.6-2.6); Potassium 4.2 mEq/L (3.5-5.1)
[2020-12-12] MEDS: Insulin LISPRO 300 UNITS/3 ML VIAL SUBQ SCH ×4 (05:45→16:23)
[2020-12-12 08:08] LABS: Hematocrit 26.8 % (35.3-44.9); Hemoglobin 8.2 g/dL (11.5-15.4)
[2020-12-12] MEDS ORDERED: Famotidine 20 MG/2 ML VIAL IVP SCH (09:00)
[2020-12-12] MEDS: *HR* OxyCODONE/APAP 5/325 TABLET PO PRN ×2 (09:17→21:26)
[2020-12-12 09:30] LABS: Estimated Average Glucose 108 mg/dl; Hemoglobin A1C 5.4 %
[2020-12-12 12:37] LABS: Hematocrit 28.5 % (35.3-44.9); Hemoglobin 8.7 g/dL (11.5-15.4)
[2020-12-12 14:06] LABS: Bilirubin,Urine Negative (Negative); Blood,Urine Negative (Negative); Clarity,Urine Clear (Clear); Color,Urine Light-Yellow (Yellow); Glucose,Urine (UA) Normal (Normal); Hyaline Casts,Urine Few per lpf (None Seen); Ketones,Urine Negative (Negative); Leukocyte Esterase,Urine Negative (Negative); Mucus,Urine Few per lpf (None-Few); Nitrite,Urine Negative (Negative); Protein,Urine 200 mg/dL (Neg-Trace); RBC,Urine 0-3 per hpf (0-3); Specific Gravity,Urine 1.018 (1.010-1.025); Squamous Epithelial Cell,Urine Few per hpf (None-Few); Urobilinogen,Urine Normal (Normal)
[2020-12-12 18:08] LABS: Hematocrit 28.1 % (35.3-44.9); Hemoglobin 8.7 g/dL (11.5-15.4)
[2020-12-12] MEDS: *HR* Heparin 5,000 UNIT/ML VIAL SQ SCH (21:26)
[2020-12-12 21:35] LABS: Hematocrit 28.3 % (35.3-44.9); Hemoglobin 8.9 g/dL (11.5-15.4)
[2020-12-13] MEDS: Insulin LISPRO 300 UNITS/3 ML VIAL SUBQ SCH ×4 (02:42→16:22)
[2020-12-13 03:27] LABS: Hematocrit 26.2 % (35.3-44.9); Mean Corpuscular HGB Conc 30.5 g/dL (31.6-35.5); Mean Corpuscular Hemoglobin 31.6 pg (28.0-33.3); Mean Corpuscular Volume 103.6 fL (83.0-100.0); Mean Platelet Volume 8.5 fL (9.4-12.4); Platelet Count 353 K/mcL (140-400); Red Blood Count 2.53 M/mcL (3.82-4.97); Red Cell Distribution Width 13.9 % (11.5-14.5); White Blood Count 9.1 K/mcL (4.3-11.1)
[2020-12-13 03:50] LABS: Calcium 9.4 mg/dL (8.6-10.3); Potassium 3.8 mEq/L (3.5-5.1)
[2020-12-13] MEDS: *HR* Heparin 5,000 UNIT/ML VIAL SQ SCH ×3 (05:47→22:34)
[2020-12-13] MEDS ORDERED: Famotidine 20 MG/2 ML VIAL IVP SCH (09:00)
[2020-12-13] MEDS: *HR* OxyCODONE/APAP 5/325 TABLET PO PRN ×2 (10:58→23:00)
[2020-12-13] MEDS: calcitrioL 0.25 MCG CAPSULE PO SCH (11:10)
[2020-12-13] MEDS: Isosorbide MONOnitrate (24 HR) 30 MG TAB.ER.24H PO SCH (11:11)
[2020-12-13] MEDS: amLODIPine 5 MG TABLET PO SCH (11:12)
[2020-12-13] MEDS: Budesonide/Formoterol 160/4.5 1 PUFF INH IH SCH ×2 (11:38→21:52)
[2020-12-13] MEDS: Bumetanide 1 MG TABLET PO SCH (20:33)
[2020-12-13] MEDS ORDERED: QUEtiapine Fumarate 25 MG TABLET PO SCH (21:00)
[2020-12-13] MEDS ORDERED: Insulin LISPRO 300 UNITS/3 ML VIAL SUBQ SCH (21:00)
[2020-12-13] MEDS ORDERED: Mirtazapine 15 MG TABLET PO SCH (21:00)
[2020-12-14] MEDS ORDERED: *HR* HYDROcodone/Acet 10/325 mg TABLET PO ONE (03:33)
[2020-12-14] MEDS: *HR* Heparin 5,000 UNIT/ML VIAL SQ SCH (05:32)
[2020-12-14] MEDS: calcitrioL 0.25 MCG CAPSULE PO SCH (07:31)
[2020-12-14] MEDS: amLODIPine 5 MG TABLET PO SCH (07:31)
[2020-12-14] MEDS: Isosorbide MONOnitrate (24 HR) 30 MG TAB.ER.24H PO SCH (07:32)
[2020-12-14] MEDS: Bumetanide 1 MG TABLET PO SCH (07:32)
[2020-12-14] MEDS: Insulin LISPRO 300 UNITS/3 ML VIAL SUBQ SCH (07:33)
[2020-12-14] MEDS: Budesonide/Formoterol 160/4.5 1 PUFF INH IH SCH (07:39)
[2020-12-14 08:17] VITALS: BP 165/81
== END 2020-12-14 11:25 | disposition home health service (06) | DRG 389 ==
LOC: 3ANU 16:39 → EMEROOARM 16:39 → SUATTDRO 22:02 → 3ANU 22:20
PROVIDERS: ADMIT Internal Medicine; ATTEND Internal Medicine

== ENCOUNTER 2021-05-05 13:24 | Observation (INO) ==
[2021-05-05] MEDS ORDERED: Furosemide 40 MG/4 ML VIAL IVP ONE ×2 (14:53→21:00)
[2021-05-05 15:13] LABS: Basophils % 0.1 %; Eosinophils # 0.2 K/mcL (0.0-0.6); Eosinophils % 1.9 %; Hematocrit 32.9 % (35.3-44.9); Hemoglobin 10.1 g/dL (11.5-15.4); Immature Granulocytes % 0.7 % (0-4); Lymphocytes # 1.9 K/mcL (0.6-4.6); Lymphocytes % 21.2 %; Mean Corpuscular HGB Conc 30.7 g/dL (31.6-35.5); Mean Corpuscular Hemoglobin 32.1 pg (28.0-33.3); Mean Corpuscular Volume 104.4 fL (83.0-100.0); Mean Platelet Volume 8.4 fL (9.4-12.4); Monocytes # 1.1 K/mcL (0.0-1.3); Monocytes % 12.2 %; Neutrophils # 5.6 K/mcL (1.6-8.9); Platelet Count 245 K/mcL (140-400); Red Blood Count 3.15 M/mcL (3.82-4.97); Red Cell Distribution Width 14.2 % (11.5-14.5); Segmented Neutrophils % 63.9 %; White Blood Count 8.8 K/mcL (4.3-11.1)
[2021-05-05 16:05] LABS: Alanine Aminotransferase 14 Units/L (7-52); Albumin 3.2 g/dL (3.5-5.7); Albumin/Globulin Ratio 1.2 (1.1-2.2); Alkaline Phosphatase 125 Units/L (34-104); Aspartate Amino Transferase 13 Units/L (13-39); BUN/Creatinine Ratio 20 (6-26); Bilirubin,Direct 0.1 mg/dL (0.0-0.2); Bilirubin,Indirect 0.2 mg/dL (0.0-1.0); Bilirubin,Total 0.3 mg/dL (0.3-1.0); Blood Urea Nitrogen 35 mg/dL (8-23); Calcium 9.7 mg/dL (8.6-10.3); Carbon Dioxide 23 mEq/L (23-29); Chloride 103 mEq/L (98-107); Globulin 2.7 g/dL (2.4-3.5); Glucose 117 mg/dL (70-105); Lipase 27 Units/L (11-82); Osmolality,Calculated 291 (280-300); Potassium 4.3 mEq/L (3.5-5.1); Sodium 136 mEq/L (136-145); Total Protein 5.9 g/dL (6.4-8.9); Troponin I < 0.03 ng/mL (< 0.04); eGFR For African Americans 35 (> 60); eGFR For Non-African Americans 28 (> 60)
[2021-05-05] MEDS ORDERED: Naloxone 0.4 MG/ML INJ IVP PRN (17:32)
[2021-05-05] MEDS ORDERED: Melatonin 3 MG TABLET PO PRN (17:32)
[2021-05-05] MEDS ORDERED: Ondansetron 4 MG/2 ML VIAL IVP PRN (17:32)
[2021-05-05] MEDS ORDERED: Albuterol 2.5 MG/3 ML NEBULIZER IH PRN (17:36)
[2021-05-05] MEDS ORDERED: *HR* Dextrose 50 % in Water (Vial) 50 ML VIAL IVP PRN (17:42)
[2021-05-05] MEDS ORDERED: Dextrose Gel 15 GM/37.5 ML TUBE PO PRN ×2 (17:42)
[2021-05-05] MEDS ORDERED: D5% in Water 1,000 ML IVC PRN (17:42)
[2021-05-05] MEDS: *HR* Heparin 5,000 UNIT/ML VIAL SQ SCH (18:42)
[2021-05-05] MEDS: Budesonide/Formoterol 160/4.5 1 PUFF INH IH SCH (19:53)
[2021-05-05] MEDS: Mirtazapine 15 MG TABLET PO SCH (20:02)
[2021-05-05] MEDS: QUEtiapine Fumarate 25 MG TABLET PO SCH (20:03)
[2021-05-06] MEDS: *HR* HYDROcodone/Acet 10/325 mg TABLET PO PRN ×3 (00:01→16:34)
[2021-05-06 02:40] LABS: Calcium 9.3 mg/dL (8.6-10.3); Magnesium 1.8 mg/dL (1.6-2.6); Potassium 4.3 mEq/L (3.5-5.1)
[2021-05-06] MEDS: *HR* Heparin 5,000 UNIT/ML VIAL SQ SCH ×2 (05:52→16:35)
[2021-05-06] MEDS ORDERED: Tiotropium 10 INH DOSE IH ONE (07:52)
[2021-05-06] MEDS: Tiotropium 10 INH DOSE IH SCH (07:55)
[2021-05-06] MEDS: Budesonide/Formoterol 160/4.5 1 PUFF INH IH SCH ×2 (07:55→20:07)
[2021-05-06] MEDS: Sennosides 8.6 MG TABLET PO SCH (08:09)
[2021-05-06] MEDS: amLODIPine 5 MG TABLET PO SCH (08:09)
[2021-05-06] MEDS: Isosorbide MONOnitrate (24 HR) 30 MG TAB.ER.24H PO SCH (08:09)
[2021-05-06] MEDS: Furosemide 40 MG/4 ML VIAL IVP SCH ×2 (08:09→16:35)
[2021-05-06] MEDS ORDERED: Albuterol 2.5 MG/3 ML NEBULIZER IH PRN (12:53)
[2021-05-06] MEDS: Mirtazapine 15 MG TABLET PO SCH (21:50)
[2021-05-06] MEDS: QUEtiapine Fumarate 25 MG TABLET PO SCH (21:51)
[2021-05-07] MEDS: *HR* HYDROcodone/Acet 10/325 mg TABLET PO PRN ×3 (00:58→18:50)
[2021-05-07] MEDS: *HR* Heparin 5,000 UNIT/ML VIAL SQ SCH ×2 (04:55→16:38)
[2021-05-07 05:29] LABS: Calcium 9.6 mg/dL (8.6-10.3); Potassium 4.2 mEq/L (3.5-5.1)
[2021-05-07] MEDS: Tiotropium 10 INH DOSE IH SCH (07:14)
[2021-05-07] MEDS: Budesonide/Formoterol 160/4.5 1 PUFF INH IH SCH ×2 (07:14→20:00)
[2021-05-07] MEDS: Sennosides 8.6 MG TABLET PO SCH (09:21)
[2021-05-07] MEDS: Furosemide 40 MG/4 ML VIAL IVP SCH ×2 (09:22→09:27)
[2021-05-07] MEDS: amLODIPine 5 MG TABLET PO SCH (09:22)
[2021-05-07] MEDS: Isosorbide MONOnitrate (24 HR) 30 MG TAB.ER.24H PO SCH (09:22)
[2021-05-07] MEDS: Furosemide 40 MG TABLET PO SCH ×2 (12:43→16:38)
[2021-05-07] MEDS ORDERED: Bumetanide 1 MG TABLET PO SCH (21:00)
[2021-05-07] MEDS: Mirtazapine 15 MG TABLET PO SCH (21:25)
[2021-05-07] MEDS: QUEtiapine Fumarate 25 MG TABLET PO SCH (21:26)
[2021-05-08] MEDS: *HR* HYDROcodone/Acet 10/325 mg TABLET PO PRN ×2 (02:59→13:16)
[2021-05-08 04:01] LABS: Calcium 9.6 mg/dL (8.6-10.3); Potassium 4.5 mEq/L (3.5-5.1)
[2021-05-08] MEDS: *HR* Heparin 5,000 UNIT/ML VIAL SQ SCH (05:45)
[2021-05-08] MEDS: Sennosides 8.6 MG TABLET PO SCH (07:32)
[2021-05-08] MEDS: Furosemide 40 MG TABLET PO SCH (07:32)
[2021-05-08] MEDS: Isosorbide MONOnitrate (24 HR) 30 MG TAB.ER.24H PO SCH (07:33)
[2021-05-08] MEDS: Tiotropium 10 INH DOSE IH SCH (10:08)
[2021-05-08] MEDS: Budesonide/Formoterol 160/4.5 1 PUFF INH IH SCH (10:08)
[2021-05-08 11:51] VITALS: BP 151/68
== END 2021-05-08 13:46 | disposition home or self-care (01) ==
LOC: EMEROOARM 13:24 → 2ANU 13:24 → SUATTDRO 17:15 → 2ANU 18:05
PROVIDERS: ADMIT Internal Medicine; ATTEND Internal Medicine

== ENCOUNTER 2021-10-27 09:47 | Inpatient (IN) ==
[2021-10-27] MEDS ORDERED: Potassium Chloride Elixir 20 MEQ/15 ML UDC PO ONE (11:18)
[2021-10-27 13:03] LABS: Troponin I 0.04 ng/mL (< 0.04)
[2021-10-27] MEDS ORDERED: *HR* HYDROcodone/Acet 5/325 mg TABLET PO PRN (13:39)
[2021-10-27] MEDS ORDERED: Ondansetron 4 MG/2 ML VIAL IVP PRN (13:39)
[2021-10-27] MEDS ORDERED: Acetaminophen 325 MG TABLET PO PRN (13:39)
[2021-10-27] MEDS ORDERED: Naloxone 0.4 MG/ML INJ IVP PRN (13:39)
[2021-10-27 15:42] LABS: Magnesium 1.7 mg/dL (1.6-2.6)
[2021-10-27] MEDS: Bumetanide 1 MG/4 ML VIAL IVP SCH (17:44)
[2021-10-27 17:56] LABS: Calcium 8.9 mg/dL (8.6-10.3); Potassium 3.5 mEq/L (3.5-5.1); Troponin I 0.04 ng/mL (< 0.04)
[2021-10-27] MEDS: *HR* OxyCODONE Immed Rel 5 MG TABLET PO PRN (19:34)
[2021-10-27] MEDS: *HR* Heparin 5,000 UNIT/ML VIAL SQ SCH (21:10)
[2021-10-27 21:24] LABS: Bilirubin,Urine Negative (Negative); Blood,Urine Small (Negative); Clarity,Urine Clear (Clear); Color,Urine Colorless (Yellow); Glucose,Urine (UA) Normal (Normal); Ketones,Urine Negative (Negative); Leukocyte Esterase,Urine Negative (Negative); Mucus,Urine Few per lpf (None-Few); Nitrite,Urine Negative (Negative); PH,Urine 6.5 pH Units (5.0-8.0); Protein,Urine >=300 mg/dL (Neg-Trace); Specific Gravity,Urine 1.011 (1.010-1.025); Urobilinogen,Urine Normal (Normal)
[2021-10-27] MEDS: Albuterol 2.5 MG/3 ML NEBULIZER IH PRN (21:30)
[2021-10-27] MEDS ORDERED: Fluticasone Propionate Nasal 50 MCG/SPRAY BOTTLE NS PRN (23:55)
[2021-10-28] MEDS ORDERED: *HR* Metoprolol 5 MG/5 ML VIAL IVP ONE (00:19)
[2021-10-28] MEDS: Folic Acid 1 MG TABLET PO SCH (01:07)
[2021-10-28] MEDS: QUEtiapine Fumarate 25 MG TABLET PO SCH ×2 (01:07→21:22)
[2021-10-28] MEDS: paricalcitoL 1 MCG CAPSULE PO SCH (02:14)
[2021-10-28 03:24] LABS: Basophils % 0.3 %; Eosinophils # 0.6 K/mcL (0.0-0.6); Eosinophils % 4.7 %; Hematocrit 27.6 % (35.3-44.9); Hemoglobin 8.6 g/dL (11.5-15.4); Immature Granulocytes % 1.7 % (0-4); Lymphocytes # 1.8 K/mcL (0.6-4.6); Lymphocytes % 15.1 %; Mean Corpuscular HGB Conc 31.2 g/dL (31.6-35.5); Mean Corpuscular Hemoglobin 31.2 pg (28.0-33.3); Mean Platelet Volume 8.6 fL (9.4-12.4); Monocytes # 1.3 K/mcL (0.0-1.3); Monocytes % 10.6 %; Neutrophils # 7.9 K/mcL (1.6-8.9); Platelet Count 359 K/mcL (140-400); Red Blood Count 2.76 M/mcL (3.82-4.97); Red Cell Distribution Width 12.9 % (11.5-14.5); Segmented Neutrophils % 67.6 %; White Blood Count 11.8 K/mcL (4.3-11.1)
[2021-10-28 03:33] LABS: INR 1.1; Prothrombin Time 12.7 Seconds (9.4-12.1)
[2021-10-28 03:49] LABS: Albumin 2.9 g/dL (3.5-5.7); Albumin/Globulin Ratio 1.1 (1.1-2.2); Bilirubin,Total 0.3 mg/dL (0.3-1.0); Calcium 8.5 mg/dL (8.6-10.3); Chol/HDL Ratio 4.9 (0-4.9); Globulin 2.7 g/dL (2.4-3.5); Phosphorous 2.7 mg/dL (2.7-4.5); Potassium 2.6 mEq/L (3.5-5.1); Total Protein 5.6 g/dL (6.4-8.9)
[2021-10-28] MEDS: Albuterol 2.5 MG/3 ML NEBULIZER IH PRN (04:10)
[2021-10-28] MEDS ORDERED: *HR* Labetalol 20 MG/4 ML SYRINGE IVP ONE (04:29)
[2021-10-28] MEDS: *HR* Heparin 5,000 UNIT/ML VIAL SQ SCH ×3 (05:37→21:24)
[2021-10-28] MEDS: Bumetanide 1 MG/4 ML VIAL IVP SCH ×2 (07:26→16:35)
[2021-10-28] MEDS: *HR* OxyCODONE Immed Rel 5 MG TABLET PO PRN ×2 (07:26→14:56)
[2021-10-28] MEDS: Magnesium Oxide 400 MG TABLET PO SCH (07:37)
[2021-10-28] MEDS: Isosorbide MONOnitrate (24 HR) 30 MG TAB.ER.24H PO SCH (07:37)
[2021-10-28] MEDS ORDERED: metOLazone 5 MG TABLET PO SCH (09:00)
[2021-10-28] MEDS ORDERED: NON-FORMULARY MEDICATION 1 EACH EACH (Bumetanide 2 MG Tablet) PO SCH (09:00)
[2021-10-28] MEDS ORDERED: Perflutren Lipid Microsphere 1.3 ML in 0.9 % Sodium Chloride 8.7 ML IVP PRN (10:34)
[2021-10-28] MEDS: Tiotropium 10 INH DOSE IH SCH (11:23)
[2021-10-28] MEDS: Budesonide/Formoterol 160/4.5 1 PUFF INH IH SCH ×2 (11:23→21:08)
[2021-10-28] MEDS: *HR* HYDROcodone/Acet 10/325 mg TABLET PO PRN ×2 (12:28→21:21)
[2021-10-28] MEDS: Mirtazapine 15 MG TABLET PO SCH (21:22)
[2021-10-28] MEDS: polyethylene glycoL 3350 17 GM POWD.PACK PO PRN (21:24)
[2021-10-29 02:11] LABS: Basophils % 0.2 %; Eosinophils # 0.5 K/mcL (0.0-0.6); Eosinophils % 4.7 %; Hematocrit 26.7 % (35.3-44.9); Hemoglobin 8.3 g/dL (11.5-15.4); Immature Granulocytes % 1.6 % (0-4); Lymphocytes # 2.1 K/mcL (0.6-4.6); Lymphocytes % 18.6 %; Mean Corpuscular HGB Conc 31.1 g/dL (31.6-35.5); Mean Corpuscular Hemoglobin 31.4 pg (28.0-33.3); Mean Corpuscular Volume 101.1 fL (83.0-100.0); Mean Platelet Volume 8.8 fL (9.4-12.4); Monocytes # 1.3 K/mcL (0.0-1.3); Neutrophils # 6.9 K/mcL (1.6-8.9); Platelet Count 344 K/mcL (140-400); Red Blood Count 2.64 M/mcL (3.82-4.97); Red Cell Distribution Width 13.2 % (11.5-14.5); Segmented Neutrophils % 62.9 %
[2021-10-29 02:18] LABS: Calcium 8.5 mg/dL (8.6-10.3); Potassium 3.7 mEq/L (3.5-5.1)
[2021-10-29] MEDS: *HR* Heparin 5,000 UNIT/ML VIAL SQ SCH ×3 (05:10→22:00)
[2021-10-29] MEDS: Budesonide/Formoterol 160/4.5 1 PUFF INH IH SCH ×2 (08:21→20:21)
[2021-10-29] MEDS: Tiotropium 10 INH DOSE IH SCH (08:21)
[2021-10-29] MEDS: Bumetanide 1 MG/4 ML VIAL IVP SCH ×2 (08:40→16:37)
[2021-10-29] MEDS: Isosorbide MONOnitrate (24 HR) 30 MG TAB.ER.24H PO SCH (08:41)
[2021-10-29] MEDS: Spironolactone 25 MG TABLET PO SCH (08:41)
[2021-10-29] MEDS: Magnesium Oxide 400 MG TABLET PO SCH (08:41)
[2021-10-29 08:56] LABS: % Iron Saturation 28 % (15-50); Iron 46 mcg/dL (50-170); Transferrin 118 mg/dL (203-362)
[2021-10-29 09:33] LABS: Folate > 22.3 ng/mL (3.0-16.0); Vitamin B12 481 pg/mL (250-1100)
[2021-10-29] MEDS: *HR* HYDROcodone/Acet 10/325 mg TABLET PO PRN ×2 (14:36→21:57)
[2021-10-29] MEDS: polyethylene glycoL 3350 17 GM POWD.PACK PO PRN (14:36)
[2021-10-29] MEDS: Mirtazapine 15 MG TABLET PO SCH (21:56)
[2021-10-29] MEDS: Metoprolol 100 MG TABLET PO SCH (21:58)
[2021-10-29] MEDS: QUEtiapine Fumarate 25 MG TABLET PO SCH (21:58)
[2021-10-29] MEDS: paricalcitoL 1 MCG CAPSULE PO SCH (23:43)
[2021-10-29] MEDS: Folic Acid 1 MG TABLET PO SCH (23:43)
[2021-10-30] MEDS: *HR* Heparin 5,000 UNIT/ML VIAL SQ SCH ×3 (06:04→20:56)
[2021-10-30] MEDS: Bumetanide 1 MG/4 ML VIAL IVP SCH ×2 (08:41→16:26)
[2021-10-30] MEDS: Metoprolol 100 MG TABLET PO SCH ×2 (08:42→20:55)
[2021-10-30] MEDS: Isosorbide MONOnitrate (24 HR) 30 MG TAB.ER.24H PO SCH (08:42)
[2021-10-30] MEDS: Spironolactone 25 MG TABLET PO SCH (08:42)
[2021-10-30] MEDS: Magnesium Oxide 400 MG TABLET PO SCH (08:42)
[2021-10-30] MEDS: *HR* HYDROcodone/Acet 10/325 mg TABLET PO PRN ×2 (08:46→20:56)
[2021-10-30] MEDS: polyethylene glycoL 3350 17 GM POWD.PACK PO PRN (08:46)
[2021-10-30] MEDS: Tiotropium 10 INH DOSE IH SCH (10:53)
[2021-10-30] MEDS: Budesonide/Formoterol 160/4.5 1 PUFF INH IH SCH ×2 (10:53→19:55)
[2021-10-30 15:17] LABS: Basophils % 0.3 %; Eosinophils # 0.6 K/mcL (0.0-0.6); Eosinophils % 5.2 %; Hematocrit 28.2 % (35.3-44.9); Hemoglobin 8.9 g/dL (11.5-15.4); Immature Granulocytes % 1.8 % (0-4); Lymphocytes # 1.9 K/mcL (0.6-4.6); Lymphocytes % 16.6 %; Mean Corpuscular HGB Conc 31.6 g/dL (31.6-35.5); Mean Corpuscular Hemoglobin 32.2 pg (28.0-33.3); Mean Corpuscular Volume 102.2 fL (83.0-100.0); Monocytes # 1.4 K/mcL (0.0-1.3); Monocytes % 12.5 %; Neutrophils # 7.2 K/mcL (1.6-8.9); Platelet Count 370 K/mcL (140-400); Red Blood Count 2.76 M/mcL (3.82-4.97); Red Cell Distribution Width 13.2 % (11.5-14.5); Segmented Neutrophils % 63.6 %; White Blood Count 11.3 K/mcL (4.3-11.1)
[2021-10-30 15:37] LABS: Albumin 3.1 g/dL (3.5-5.7); Bilirubin,Total 0.2 mg/dL (0.3-1.0); Globulin 3.2 g/dL (2.4-3.5); Potassium 3.7 mEq/L (3.5-5.1); Total Protein 6.3 g/dL (6.4-8.9)
[2021-10-30] MEDS: *HR* OxyCODONE Immed Rel 5 MG TABLET PO PRN (16:31)
[2021-10-30] MEDS: Albumin 25% 25gram/100mL 25 GM/100 ML IV.SOLN IVPB SCH (17:51)
[2021-10-30] MEDS: Mirtazapine 15 MG TABLET PO SCH (20:55)
[2021-10-30] MEDS: Melatonin 3 MG TABLET PO PRN (20:56)
[2021-10-30] MEDS: QUEtiapine Fumarate 25 MG TABLET PO SCH (20:56)
[2021-10-31] MEDS: *HR* Heparin 5,000 UNIT/ML VIAL SQ SCH ×3 (06:25→21:21)
[2021-10-31] MEDS: Bumetanide 1 MG/4 ML VIAL IVP SCH ×2 (07:32→16:23)
[2021-10-31] MEDS: Albumin 25% 25gram/100mL 25 GM/100 ML IV.SOLN IVPB SCH ×2 (07:35→16:23)
[2021-10-31] MEDS: Magnesium Oxide 400 MG TABLET PO SCH (07:35)
[2021-10-31] MEDS: Spironolactone 25 MG TABLET PO SCH (07:35)
[2021-10-31] MEDS: Metoprolol 100 MG TABLET PO SCH ×2 (07:35→21:20)
[2021-10-31] MEDS: Isosorbide MONOnitrate (24 HR) 30 MG TAB.ER.24H PO SCH (07:35)
[2021-10-31] MEDS: *HR* HYDROcodone/Acet 10/325 mg TABLET PO PRN ×2 (07:35→18:10)
[2021-10-31] MEDS: Tiotropium 10 INH DOSE IH SCH (08:05)
[2021-10-31] MEDS: Budesonide/Formoterol 160/4.5 1 PUFF INH IH SCH ×2 (08:05→20:18)
[2021-10-31 08:49] LABS: Basophils % 0.2 %; Eosinophils # 0.5 K/mcL (0.0-0.6); Eosinophils % 4.7 %; Hematocrit 26.9 % (35.3-44.9); Hemoglobin 7.9 g/dL (11.5-15.4); Immature Granulocytes % 1.4 % (0-4); Lymphocytes # 1.3 K/mcL (0.6-4.6); Lymphocytes % 11.6 %; Mean Corpuscular HGB Conc 29.4 g/dL (31.6-35.5); Mean Corpuscular Hemoglobin 30.7 pg (28.0-33.3); Mean Corpuscular Volume 104.7 fL (83.0-100.0); Mean Platelet Volume 8.9 fL (9.4-12.4); Monocytes # 1.5 K/mcL (0.0-1.3); Monocytes % 13.8 %; Neutrophils # 7.6 K/mcL (1.6-8.9); Platelet Count 340 K/mcL (140-400); Red Blood Count 2.57 M/mcL (3.82-4.97); Red Cell Distribution Width 13.2 % (11.5-14.5); Segmented Neutrophils % 68.3 %; White Blood Count 11.1 K/mcL (4.3-11.1)
[2021-10-31 09:04] LABS: Albumin 3.3 g/dL (3.5-5.7); Albumin/Globulin Ratio 1.1 (1.1-2.2); Bilirubin,Total 0.3 mg/dL (0.3-1.0); Globulin 2.9 g/dL (2.4-3.5); Potassium 4.3 mEq/L (3.5-5.1); Total Protein 6.2 g/dL (6.4-8.9)
[2021-10-31 14:45] LABS: Hematocrit 26.2 % (35.3-44.9)
[2021-10-31] MEDS: Mirtazapine 15 MG TABLET PO SCH (21:21)
[2021-10-31] MEDS: QUEtiapine Fumarate 25 MG TABLET PO SCH (21:21)
[2021-10-31] MEDS: Melatonin 3 MG TABLET PO PRN (21:28)
[2021-10-31] MEDS: *HR* OxyCODONE Immed Rel 5 MG TABLET PO PRN (21:28)
[2021-11-01] MEDS: Folic Acid 1 MG TABLET PO SCH (01:00)
[2021-11-01 06:45] LABS: Basophils % 0.3 %; Eosinophils # 0.4 K/mcL (0.0-0.6); Eosinophils % 3.8 %; Hematocrit 25.1 % (35.3-44.9); Hemoglobin 7.6 g/dL (11.5-15.4); Immature Granulocytes % 1.2 % (0-4); Lymphocytes # 2.1 K/mcL (0.6-4.6); Lymphocytes % 20.6 %; Mean Corpuscular HGB Conc 30.3 g/dL (31.6-35.5); Mean Corpuscular Hemoglobin 31.9 pg (28.0-33.3); Mean Corpuscular Volume 105.5 fL (83.0-100.0); Monocytes # 1.3 K/mcL (0.0-1.3); Neutrophils # 6.2 K/mcL (1.6-8.9); Platelet Count 313 K/mcL (140-400); Red Blood Count 2.38 M/mcL (3.82-4.97); Red Cell Distribution Width 13.2 % (11.5-14.5); Segmented Neutrophils % 61.1 %; White Blood Count 10.2 K/mcL (4.3-11.1)
[2021-11-01 06:57] LABS: Albumin 3.5 g/dL (3.5-5.7); Albumin/Globulin Ratio 1.4 (1.1-2.2); Bilirubin,Total 0.3 mg/dL (0.3-1.0); Calcium 8.9 mg/dL (8.6-10.3); Globulin 2.5 g/dL (2.4-3.5); Potassium 4.4 mEq/L (3.5-5.1)
[2021-11-01] MEDS: *HR* Heparin 5,000 UNIT/ML VIAL SQ SCH ×3 (07:31→20:17)
[2021-11-01] MEDS: Budesonide/Formoterol 160/4.5 1 PUFF INH IH SCH ×2 (08:17→19:36)
[2021-11-01] MEDS: Tiotropium 10 INH DOSE IH SCH (08:19)
[2021-11-01] MEDS: Spironolactone 25 MG TABLET PO SCH (08:22)
[2021-11-01] MEDS: Isosorbide MONOnitrate (24 HR) 30 MG TAB.ER.24H PO SCH (08:22)
[2021-11-01] MEDS: Metoprolol 100 MG TABLET PO SCH ×2 (08:22→20:17)
[2021-11-01] MEDS: Albumin 25% 25gram/100mL 25 GM/100 ML IV.SOLN IVPB SCH (08:22)
[2021-11-01] MEDS: Bumetanide 1 MG TABLET PO SCH ×2 (08:23→16:17)
[2021-11-01] MEDS: Magnesium Oxide 400 MG TABLET PO SCH (08:23)
[2021-11-01] MEDS: *HR* HYDROcodone/Acet 10/325 mg TABLET PO PRN (08:24)
[2021-11-01] MEDS: Albuterol 2.5 MG/3 ML NEBULIZER IH PRN (19:36)
[2021-11-01] MEDS: Mirtazapine 15 MG TABLET PO SCH (20:15)
[2021-11-01] MEDS: *HR* OxyCODONE Immed Rel 5 MG TABLET PO PRN (20:15)
[2021-11-01] MEDS: Melatonin 3 MG TABLET PO PRN (20:16)
[2021-11-01] MEDS: QUEtiapine Fumarate 25 MG TABLET PO SCH (20:17)
[2021-11-01] MEDS: paricalcitoL 1 MCG CAPSULE PO SCH (23:25)
[2021-11-02 01:36] LABS: Basophils % 0.2 %; Eosinophils # 0.3 K/mcL (0.0-0.6); Eosinophils % 2.9 %; Hematocrit 24.3 % (35.3-44.9); Hemoglobin 7.2 g/dL (11.5-15.4); Immature Granulocytes % 0.7 % (0-4); Lymphocytes # 1.5 K/mcL (0.6-4.6); Lymphocytes % 12.8 %; Mean Corpuscular HGB Conc 29.6 g/dL (31.6-35.5); Mean Corpuscular Volume 104.7 fL (83.0-100.0); Monocytes # 1.6 K/mcL (0.0-1.3); Monocytes % 13.3 %; Neutrophils # 8.3 K/mcL (1.6-8.9); Platelet Count 328 K/mcL (140-400); Red Blood Count 2.32 M/mcL (3.82-4.97); Red Cell Distribution Width 12.9 % (11.5-14.5); Segmented Neutrophils % 70.1 %; White Blood Count 11.8 K/mcL (4.3-11.1)
[2021-11-02 01:56] LABS: Albumin 3.6 g/dL (3.5-5.7); Albumin/Globulin Ratio 1.4 (1.1-2.2); Bilirubin,Total 0.3 mg/dL (0.3-1.0); Calcium 9.1 mg/dL (8.6-10.3); Globulin 2.6 g/dL (2.4-3.5); Potassium 4.8 mEq/L (3.5-5.1); Total Protein 6.2 g/dL (6.4-8.9)
[2021-11-02] MEDS: *HR* Heparin 5,000 UNIT/ML VIAL SQ SCH ×3 (05:50→20:13)
[2021-11-02] MEDS: *HR* OxyCODONE Immed Rel 5 MG TABLET PO PRN ×2 (05:53→20:11)
[2021-11-02] MEDS: Budesonide/Formoterol 160/4.5 1 PUFF INH IH SCH ×2 (07:43→20:23)
[2021-11-02] MEDS: Tiotropium 10 INH DOSE IH SCH (07:43)
[2021-11-02] MEDS: Magnesium Oxide 400 MG TABLET PO SCH (08:03)
[2021-11-02] MEDS: Metoprolol 100 MG TABLET PO SCH ×2 (08:03→20:13)
[2021-11-02] MEDS: Spironolactone 25 MG TABLET PO SCH (08:03)
[2021-11-02] MEDS: Isosorbide MONOnitrate (24 HR) 30 MG TAB.ER.24H PO SCH (08:03)
[2021-11-02] MEDS: Bumetanide 1 MG TABLET PO SCH ×2 (08:03→15:15)
[2021-11-02 13:03] LABS: Hematocrit 25.1 % (35.3-44.9); Hemoglobin 7.4 g/dL (11.5-15.4)
[2021-11-02] MEDS: Mirtazapine 15 MG TABLET PO SCH (20:11)
[2021-11-02] MEDS: QUEtiapine Fumarate 25 MG TABLET PO SCH (20:11)
[2021-11-02] MEDS: Melatonin 3 MG TABLET PO PRN (20:12)
[2021-11-02] MEDS: Folic Acid 1 MG TABLET PO SCH (21:37)
[2021-11-03] MEDS: *HR* Heparin 5,000 UNIT/ML VIAL SQ SCH ×2 (05:30→14:12)
[2021-11-03] MEDS: Magnesium Oxide 400 MG TABLET PO SCH (07:56)
[2021-11-03] MEDS: Metoprolol 100 MG TABLET PO SCH ×2 (07:56→20:46)
[2021-11-03] MEDS: Bumetanide 1 MG TABLET PO SCH ×2 (07:56→16:46)
[2021-11-03] MEDS: Isosorbide MONOnitrate (24 HR) 30 MG TAB.ER.24H PO SCH (07:56)
[2021-11-03] MEDS: Spironolactone 25 MG TABLET PO SCH (07:56)
[2021-11-03] MEDS: *HR* HYDROcodone/Acet 10/325 mg TABLET PO PRN ×2 (07:58→20:46)
[2021-11-03] MEDS: Budesonide/Formoterol 160/4.5 1 PUFF INH IH SCH ×2 (08:43→19:56)
[2021-11-03] MEDS: Tiotropium 10 INH DOSE IH SCH (08:43)
[2021-11-03] MEDS: Mirtazapine 15 MG TABLET PO SCH (20:46)
[2021-11-03] MEDS: QUEtiapine Fumarate 25 MG TABLET PO SCH (20:46)
[2021-11-03] MEDS: polyethylene glycoL 3350 17 GM POWD.PACK PO PRN (20:46)
[2021-11-04] MEDS: paricalcitoL 1 MCG CAPSULE PO SCH (00:25)
[2021-11-04] MEDS: *HR* Heparin 5,000 UNIT/ML VIAL SQ SCH ×2 (00:25→05:14)
[2021-11-04] MEDS: Budesonide/Formoterol 160/4.5 1 PUFF INH IH SCH (07:37)
[2021-11-04] MEDS: Tiotropium 10 INH DOSE IH SCH (07:38)
[2021-11-04] MEDS: Spironolactone 25 MG TABLET PO SCH (09:13)
[2021-11-04] MEDS: Isosorbide MONOnitrate (24 HR) 30 MG TAB.ER.24H PO SCH (09:14)
[2021-11-04] MEDS: *HR* HYDROcodone/Acet 10/325 mg TABLET PO PRN (09:14)
[2021-11-04] MEDS: Bumetanide 1 MG TABLET PO SCH (09:14)
[2021-11-04] MEDS: Magnesium Oxide 400 MG TABLET PO SCH (09:14)
[2021-11-04] MEDS: Metoprolol 100 MG TABLET PO SCH (09:14)
[2021-11-04 09:54] LABS: Calcium 9.3 mg/dL (8.6-10.3); Potassium 4.8 mEq/L (3.5-5.1)
[2021-11-04 11:16] VITALS: BP 173/70; PULSE 76; TEMP 98.2; O2SAT 94
[2021-11-04] MEDS: *HR* OxyCODONE Immed Rel 5 MG TABLET PO PRN (14:51)
== END 2021-11-04 15:54 | disposition home or self-care (01) | DRG 291 ==
LOC: 3BNU 09:47 → EMEROOARM 09:47 → 3BNU 16:26 → SUATTDRO 10-28 17:21
PROVIDERS: ADMIT Internal Medicine; ATTEND Registered Nurse